=== PATIENT | male | born 1980 | race African-American/Black ===

== ENCOUNTER 2016-10-14 11:20 | Emergency (ER) | payer MEDICAID ==
[~2016-10-14] VITALS: Ht 180.3 cm; Wt 84.0 kg
[2016-10-14] MEDS ORDERED: IBUPROFEN 800MG TABLET PO ONE (15:30)
[2016-10-14 15:57] VITALS: BP 116/78
== END 2016-10-14 16:00 | disposition home or self-care (01) ==
LOC: ER 14:09
DX: K04.7 Periapical abscess without sinus (principal); K02.9 Dental caries, unspecified
CPT/HCPCS: 99283; Z7610

== ENCOUNTER 2019-10-17 15:08 | Emergency (ER) | payer MEDICAID ==
[~2019-10-17] VITALS: Ht 175.3 cm; Wt 76.0 kg
[2019-10-17] MEDS ORDERED: METHYLPREDNISOLONE SOD SUCC 125 MG/2 ML VIAL IV STA (15:32)
[2019-10-17] MEDS ORDERED: ASPIRIN 81MG TABLET PO ONE (15:45)
[2019-10-17] MEDS ORDERED: ALBUTEROL 6.7GM HFA INHALER ORI ONE ×3 (15:45)
[2019-10-17 15:59] LABS: BASOPHILS % 0.3 % (0.0-2.0); EOSINOPHILS % 8.2 % (0.0-5.0); HEMOGLOBIN. 14.7 g/dL (14.0-18.0); LYMPHOCYTES % 37.6 % (20.0-50.0); MEAN CORPUSCULAR HEMOGLOBIN 28.8 pg (28.0-32.0); MEAN CORPUSCULAR VOLUME 86.2 fL (80.0-94.0); MEAN PLATELET VOLUME 8.7 fl (7.4-10.4); MONOCYTES % 6.3 % (2.0-8.0); NEUTROPHILS % 47.6 % (40.0-76.0); PLATELET 228 x1000/uL (130-400); RED BLOOD CELL COUNT 5.11 mill/uL (4.7-6.1); RED CELL DISTRIBUTION WIDTH 14.1 % (11.6-14.6)
[2019-10-17 16:05] LABS: CHLORIDE 110 mEq/L (98-107); D-DIMER 0.23 mg/L FEU (<0.50); INR 1.2; PARTIAL THROMBOPLASTIN TIME 30.1 sec (23.4-31.0); PROTHROMBIN TIME 12.1 sec (9.6-11.0)
[2019-10-17] MEDS ORDERED: POTASSIUM CHLORIDE 20MEQ TABLET SR PO ONE (19:00)
[2019-10-17 19:28] VITALS: BP 139/87
== END 2019-10-17 19:31 | disposition left against medical advice (07) ==
LOC: ER 15:08 → EDBEDREQTM 18:05 → EDBEDREQ 18:05 → ER 19:31 → CANBEDREQ 10-18 08:42
DX: R06.02 Shortness of breath (principal); J45.909 Unspecified asthma, uncomplicated; F17.290 Nicotine dependence, other tobacco product, uncomplicated; F15.10 Other stimulant abuse, uncomplicated
CPT/HCPCS: 36415; 71045; 80053; 83880; 84484; 85025; 85379; 85610; 85730; 93005; 96374; 99285; J2930; Z7610